=== PATIENT | female | born 1970 | race Hispanic/Latino ===

== ENCOUNTER 2021-08-19 09:55 | Day surgery (SDC) | payer OTHER ==
[~2021-08-19 09:55] MED LIST: SODIUM CHLORIDE 0.9% 1000 ML 1,000 ML ONE
== END 2021-08-19 09:56 | disposition home or self-care (01) ==
LOC: EDBD 09:55 → GIO 09:55
DX: R10.9 Unspecified abdominal pain (principal); K63.89 Other specified diseases of intestine; K31.89 Other diseases of stomach and duodenum; E11.9 Type 2 diabetes mellitus without complications; I10 Essential (primary) hypertension; Z86.73 Personal history of transient ischemic attack (TIA), and cerebral infarction without residual deficits
CPT/HCPCS: 82962; 88305; 88342; J7030; Q0162